=== PATIENT | male | born 1990 | race Caucasian/White ===

== ENCOUNTER 2016-08-24 10:04 | Day surgery (SDC) | payer BC ==
[~2016-08-24] VITALS: Ht 190.5 cm; Wt 117.9 kg
[~2016-08-24 10:04] MED LIST: AMOX500C PO; CODE30TA3 PO
[2016-08-24] MEDS ORDERED: ONDANSETRON 4MG/2ML VIAL (J2405) As Ordered ONE ×2 (11:37→14:29)
[2016-08-24 11:41] LABS: BASO % 0.1 % (0.0-1.0); EOS % 0.4 % (0.0-3.0); LARGE UNSTAINED CELL # 0.1 K/mm3 (0.0-0.4); LARGE UNSTAINED CELL % 0.3 % (0.0-4.0); LYMPH # 0.8 K/mm3 (1.5-6.5); LYMPH % 5.4 % (24.0-44.0); MEAN CORPUSCULAR HEMOGLOBIN 31.8 pg (27.0-33.0); MEAN CORPUSCULAR HGB CONC 34.4 g/dl (32.0-36.5); MEAN CORPUSCULAR VOLUME 92.6 fl (80.0-96.0); MONO # 0.4 K/mm3 (0.0-0.8); MONO % 3.2 % (0.0-5.0); NEUTROPHILS # 12.2 K/mm3 (1.8-7.7); NEUTROPHILS % 90.6 % (36.0-66.0); PLATELET COUNT, AUTOMATED 262 k/mm3 (150-450); RED CELL DISTRIBUTION WIDTH 12.2 % (11.5-14.5); WHITE BLOOD COUNT 13.4 K/mm3 (4.0-10.0)
[2016-08-24 11:49] LABS: ALBUMIN 4.4 GM/DL (3.2-5.2); ALBUMIN/GLOBULIN RATIO 1.05 (1.00-1.93); ALKALINE PHOSPHATASE 84 U/L (45-117); ALT/SGPT 41 U/L (12-78); ANION GAP 11 MEQ/L (8-16); AST/SGOT 18 U/L (15-37); BILIRUBIN,DIRECT 0.1 MG/DL (0.0-0.2); BILIRUBIN,TOTAL 0.6 MG/DL (0.2-1.0); BLOOD UREA NITROGEN 14 MG/DL (7-18); CALCIUM LEVEL 9.4 MG/DL (8.5-10.1); CARBON DIOXIDE LEVEL 25 MEQ/L (21-32); CHLORIDE LEVEL 104 MEQ/L (98-107); CREATININE FOR GFR 0.99 MG/DL (0.70-1.30); GLOMERULAR FILTRATION RATE > 60.0 (>60); GLUCOSE, FASTING 118 MG/DL (70-105); POTASSIUM SERUM 3.7 MEQ/L (3.5-5.1); SODIUM LEVEL 140 MEQ/L (136-145); TOTAL PROTEIN 8.6 GM/DL (6.4-8.2)
[2016-08-24] MEDS ORDERED: MORPHINE 4 MG/ML 1ML SYRINGE As Ordered ONE ×2 (11:49→12:45)
[2016-08-24] MEDS ORDERED: ISOVUE-370 76% 100ML VIAL (Q9967) As Ordered ONE (11:54)
--- NOTE | 2016-08-24 12:46 | REP ---
Clinical: Acute abdominal pain. Technique: Axial contrast enhanced images from the lung bases to the pubic symphysis using 100 ml Isovue 370 intravenous contrast material with coronal and sagittal re-formations. Findings: The appendix is fluid-filled and distended to approximately 17 mm with appendicolith and trace periappendiceal stranding suggesting the possibility of acute appendicitis (images 116 - 138). Remainder of the enteric system is unremarkable and without obstruction or further acute inflammatory process. Liver, spleen, pancreas, gallbladder, bilateral adrenal glands and kidneys are normal. Pelvis demonstrates normal bladder and age appropriate prostate/seminal vesicles. No pelvic fluid. No intraperitoneal or retroperitoneal adenopathy. No ascites. No free air. Abdominal aorta and vasculature normal. Surrounding musculoskeletal structures without focal osseous abnormality. Lung bases clear. Impression: Findings suggest acute appendicitis and clinical correlation is recommended. No associated bowel obstruction, free air to suggest perforation, or drainable collection/abscess. Signed by Prabhjot No MD 08/24/2016 12:38 P
[2016-08-24] MEDS ORDERED: ZOSYN 3.375 GM VIAL (J2543) As Ordered ONE (13:17)
[2016-08-24] MEDS ORDERED: LIDOCAINE 1% SDV INJ 30 ML VIAL As Ordered ONE (13:26)
[2016-08-24] MEDS ORDERED: BUPIVACAINE HCL 0.25% 30 ML VIAL As Ordered ONE (13:26)
[2016-08-24] MEDS ORDERED: BUPIVACAINE HCL 0.25% 30 ML VIAL XX ONE (13:37)
[2016-08-24] MEDS ORDERED: LIDOCAINE 1% SDV INJ 30 ML VIAL XX ONE (13:37)
--- NOTE | 2016-08-24 13:40 | EDDOCDS ---
Physician Documentation [facility] Name: Cory Jovel Age: 25 yrs Sex: Male : 1990 Arrival Date: 08/24/2016 Time: 10:04 Bed I7 / 29 Private MD: Piedad Hartmann Disposition: 08/24/16 13:17 Hospitalization ordered by Juan Alberto Estrada for Inpatient Admission. Preliminary diagnosis is Acute appendicitis. - Bed requested for Admit. - Status is Inpatient Admission. ja5 - Condition is Stable. - Problem is new. - Symptoms have improved. Historical: - Allergies: no known allergies; - Home Meds: 1. none - PMHx: none; - PSHx: septoplasty; - Social history: Smoking status: Patient/guardian denies using No barriers to communication noted, The patient speaks fluent Luxembourger. - : The pt / caregiver states he / she is not on anticoagulants. Home medication list is obtained from family members. - Exposure Risk Screening:: None identified. Vital Signs: 08/24 10:06 BP 154 / 74; Pulse 89; Resp 18; Temp 97.1(O); Pulse Ox 99% on R/A; Weight 117.93 kg / ct3 259.99 lbs (R); Height 6 ft. 3 in. (190.50 cm) (R); Pain 7/10; 12:39 Pain 6/10; ja5 12:41 BP 163 / 74; Pulse 70; Resp 20; Temp 98.2; Pulse Ox 100% ; Pain 6/10; jam1 12:44 Pain 6/10; dsf 13:29 BP 173 / 81; Pulse 70; Resp 20; Temp 96.4(T); Pulse Ox 99% on R/A; Pain 8/10; dsf 10:06 Body Mass Index 32.50 (117.93 kg, 190.50 cm) ct3 MDM: 11:30 Undress patient appropriately for examination ordered. cc10 11:30 IV Saline Lock ordered. cc10 11:30 Ondansetron 4 mg IVP once ordered. cc10 11:30 NS 0.9% 1000 ml IV at bolus once ordered. cc10 11:31 Basic Metabolic Profile Ordered. EDMS 11:31 CBC with Diff Ordered. EDMS 11:31 Lipase Ordered. EDMS 11:31 Liver Profile Ordered. EDMS 11:31 NOTHING BY MOUTH+DIET ordered. EDMS 11:47 morphine 4 mg IVP once ordered. cc10 11:47 CT ABD & PELVIS: IV Contrast Only Ordered. EDMS 12:16 Basic Metabolic Profile Reviewed. cc10 12:16 CBC with Diff Reviewed. cc10 12:16 Liver Profile Reviewed. cc10 12:16 Lipase Reviewed. cc10 12:19 Financial registration complete. lg 12:43 morphine 4 mg IVP once ordered. cc10 13:16 Piperacillin-Tazobactam 3.375 grams IVPB once over 30 mins; dilute in 50mL of NS or D5W cc10 ordered. 13:19 BED REQUEST+ADM ordered. EDMS 13:33 Admission Orders was scanned into [employer] and attached to record. 4 13:37 [facility] Payment Agreement was scanned into [employer] and attached to record. lg Administered Medications: 11:44 Drug: NS 0.9% 1000 ml [sodium chloride 0.9 % intravenous solution] Route: IV; Rate: ja5 bolus; Site: left antecubital; 11:45 Drug: Ondansetron 4 mg [ondansetron HCl 2 mg/mL intravenous solution (2 mL)] Route: ja5 IVP; Site: left antecubital; 11:54 Drug: morphine 4 mg [morphine 4 mg/mL intravenous cartridge (1 mL)] Route: IVP; Site: ja5 left antecubital; 12:39 Follow up: Pain 6/10 Adult ja5 12:44 Follow up: Pain 6/10 Adult; see charted VS dsf 12:47 Drug: morphine 4 mg [morphine 4 mg/mL intravenous cartridge (1 mL)] Route: IVP; Site: dsf right antecubital; 13:28 Drug: Piperacillin-Tazobactam 3.375 grams [piperacillin-tazobactam 3.375 gram ja5 intravenous solution] Route: IVPB; Infused Over: 30 mins; Site: left antecubital; Signatures: Dispatcher [employer] EDMS Kalani Kate, RN Ruddy Shepard, Reg Reg lg Ginna Méndez RN RN jc4 Celena Szymanski RN RN dsf Carlos Camacho, PA-C PA-C cc10 Soni Nieves RN RN ja5 The chart was reviewed and I authenticate all verbal orders and agree with the evaluation and treatment provided.Attachments: 13:33 Admission Orders jc4 13:37 [facility] Payment Agreement lg MTDD
--- NOTE | 2016-08-24 13:40 | EDDOCDS ---
Nurse's Notes [facility] Name: Cory Jovel Age: 25 yrs Sex: Male : 1990 Arrival Date: 08/24/2016 Time: 10:04 Bed I7 / 29 Private MD: Piedad Hartmann Diagnosis: Acute appendicitis Presentation: 08/24 10:15 Presenting complaint: Patient states: Pt presents with onset of bloody vomiting last dls night has had abdominal pain x 2 days denies any diarrhea. Risk factors: the patient reports not having a history of previous torsion. Adult Sepsis Screening: The patient does not have new or worsening altered mentation. Patient's respiratory rate is less than 22. Systolic blood pressure is greater than 100. Patient has a qSOFA score of 0- Negative Sepsis Screen. Suicide/Homicide risk assessment- the patient denies having any suicidal and/or homicidal ideations and does not present with any other emotional, behavioral or mental health complaints. Status: Patient is not a sales and service officer or dependent. Transition of care: patient was not received from another setting of care. 10:15 Acuity: TASIA Level 3 dls 10:15 Method Of Arrival: Walkin/Carried/Asstd dls 10:18 Presenting complaint: Patient states: Vomited x 7 today. dls Triage Assessment: 10:17 General: Appears distressed, well developed, well nourished, well groomed, Behavior is dls anxious. Pain: Pain Level that is acceptable is 8 out of 10 on a pain scale. HIV screening NA for this visit Offered previously. GI: Reports lower abdominal pain, upper abd pain, nausea, vomiting. Historical: - Allergies: no known allergies; - Home Meds: 1. none - PMHx: none; - PSHx: septoplasty; - Social history: Smoking status: Patient/guardian denies using No barriers to communication noted, The patient speaks fluent Cymro. - : The pt / caregiver states he / she is not on anticoagulants. Home medication list is obtained from family members. - Exposure Risk Screening:: None identified. Screenin:45 Screening information is obtained from the patient. Fall risk: No risks identified. ja5 Assistance ADL's: requires no assistance with activities of daily living. Abuse/DV Screen: The patient / caregiver reports he/she is: not in a situation that causes fear, pain or injury. Nutritional screening: On no prescribed diet. Advance Directives: Currently, there is a health care proxy, Mariola Rush, mother. There is no active DNR order. There is no living will. There is no Power of Sports Physical Therapist. home support is adequate. Assessment: 10:44 Adult Sepsis Screening: The patient does not have new or worsening altered mentation. dsf Patient's respiratory rate is less than 22. Systolic blood pressure is greater than 100. Patient has a qSOFA score of 0- Negative Sepsis Screen. General: Appears uncomfortable, Behavior is appropriate for age. Pain: Location: abdomen Pain currently is 8 out of 10 on a pain scale. Pain began 2-3 days ago. Neurological: Level of Consciousness is awake, alert, Oriented to person, place, time. Cardiovascular: Capillary refill < 3 seconds Heart tones S1 S2 present. Respiratory: Airway is patent Respiratory effort is even, unlabored, Respiratory pattern is regular, symmetrical, Breath sounds are clear bilaterally. GI: Abdomen is non- distended Bowel sounds present X 4 quads. Abd is soft X 4 quads Abd is tender to palpation in epigastric area, left upper quadrant and right lower quadrant Reports vomiting blood. Derm: Skin is pink, warm & dry. 11:44 General: Appears uncomfortable, Behavior is appropriate for age. Neurological: Level of dsf Consciousness is awake, alert. Cardiovascular: No deficits noted. Respiratory: No deficits noted. Derm: Skin is pink, warm & dry. 12:44 General: Appears in no apparent distress, uncomfortable, Behavior is appropriate for dsf age, cooperative. Neurological: Level of Consciousness is awake, alert. Cardiovascular: Capillary refill < 3 seconds. Respiratory: Airway is patent Respiratory effort is even, unlabored, Respiratory pattern is regular, symmetrical. Derm: Skin is pink, warm & dry. 13:21 General: Dr. Shrestha in examining patient. dsf 13:32 General: Patient awake and alert, still having pain, respirations are even and ja5 unlabored, color is pink. Patient laying in stretcher, visitor at bedside. Antibiotics infusing to LAC, patient OR packet has been completed, he is awaiting to leave for surgery at this time. . Vital Signs: 10:06 BP 154 / 74; Pulse 89; Resp 18; Temp 97.1(O); Pulse Ox 99% on R/A; Weight 117.93 kg ct3 (R); Height 6 ft. 3 in. (190.50 cm) (R); Pain 7/10; 12:39 Pain 6/10; ja5 12:41 BP 163 / 74; Pulse 70; Resp 20; Temp 98.2; Pulse Ox 100% ; Pain 6/10; jam1 12:44 Pain 6/10; dsf 13:29 BP 173 / 81; Pulse 70; Resp 20; Temp 96.4(T); Pulse Ox 99% on R/A; Pain 8/10; dsf 10:06 Body Mass Index 32.50 (117.93 kg, 190.50 cm) ct3 Vitals: 10:06 Log In Time: August 24, 2016 at 10:01. ct3 ED Course: 10:05 Patient visited by Saira Enriquez PCA. ct3 10:05 Patient moved to Waiting ct3 10:06 Piedad Hartmann is Private Physician. ct3 10:07 Patient moved to Pre RCE ct3 10:17 Triage Initiated dls 10:22 Soni Nieves,RN is Primary Nurse. dls 10:22 Ginna Méndez, DUSTIN is Primary Nurse. dls 10:22 Patient moved to I dls 10:45 Patient visited by Celena Szymanski RN. dsf 10:45 Inserted saline lock: 20 gauge in left antecubital area The patient tolerated the dsf procedure well. 11:32 Basic Metabolic Profile Sent. dsf 11:32 CBC with Diff Sent. dsf 11:32 Lipase Sent. dsf 11:32 Liver Profile Sent. dsf 11:44 Carlos Camacho PA-C is PHCP. cc10 11:44 Mj Bell MD is Attending Physician. cc10 11:44 Patient visited by Carlos Camacho PA-C. cc10 11:44 Patient visited by Carlos Camacho PA-C. cc10 12:40 Patient visited by Soni Nieves RN. ja5 13:16 Juan Alberto Estrada MD is Hospitalizing Provider. cc10 13:17 CT ABD & PELVIS: IV Contrast Only Returned. EDMS 13:22 Patient visited by Celena Szymanski RN. dsf 13:33 Admission Orders was scanned into [employer] and attached to record. jc4 13:37 [facility] Payment Agreement was scanned into [employer] and attached to record. lg Administered Medications: 11:44 Drug: NS 0.9% 1000 ml [sodium chloride 0.9 % intravenous solution] Route: IV; Rate: ja5 bolus; Site: left antecubital; 11:45 Drug: Ondansetron 4 mg [ondansetron HCl 2 mg/mL intravenous solution (2 mL)] Route: ja5 IVP; Site: left antecubital; 11:54 Drug: morphine 4 mg [morphine 4 mg/mL intravenous cartridge (1 mL)] Route: IVP; Site: ja5 left antecubital; 12:39 Follow up: Pain 6/10 Adult ja5 12:44 Follow up: Pain 6/10 Adult; see charted VS dsf 12:47 Drug: morphine 4 mg [morphine 4 mg/mL intravenous cartridge (1 mL)] Route: IVP; Site: dsf right antecubital; 13:28 Drug: Piperacillin-Tazobactam 3.375 grams [piperacillin-tazobactam 3.375 gram ja5 intravenous solution] Route: IVPB; Infused Over: 30 mins; Site: left antecubital; Intake: Order Results: Lab Order: Basic Metabolic Profile; SPEC'M 08/24/16 10:42 Test: GLUCOSE, FASTING; Value: 118; Range: 70-105; Abnormal: Above high normal; Units: MG/DL; Status: F Test: BLOOD UREA NITROGEN; Value: 14; Range: 7-18; Units: MG/DL; Status: F Test: CREATININE FOR GFR; Value: 0.99; Range: 0.70-1.30; Units: MG/DL; Status: F Test: GLOMERULAR FILTRATION RATE; Value: > 60.0; Range: >60; Status: F Test: SODIUM LEVEL; Value: 140; Range: 136-145; Units: MEQ/L; Status: F Test: POTASSIUM SERUM; Value: 3.7; Range: 3.5-5.1; Units: MEQ/L; Status: F Test: CHLORIDE LEVEL; Value: 104; Range: 98-107; Units: MEQ/L; Status: F Test: CARBON DIOXIDE LEVEL; Value: 25; Range: 21-32; Units: MEQ/L; Status: F Test: ANION GAP; Value: 11; Range: 8-16; Units: MEQ/L; Status: F Test: CALCIUM LEVEL; Value: 9.4; Range: 8.5-10.1; Units: MG/DL; Status: F Test Note: ; Units are mL/min/1.73 m2 Chronic Kidney Disease Staging per NKF: Stage I & II GFR >=60 Normal to Mildly Decreased Stage III GFR 30-59 Moderately Decreased Stage IV GFR 15-29 Severely Decreased Stage V GFR <15 Very Little GFR Left ESRD GFR <15 on BI DATA ARCHITECT Lab Order: CBC with Diff; SPEC'M 08/24/16 10:42 Test: WHITE BLOOD COUNT; Value: 13.4; Range: 4.0-10.0; Abnormal: Above high normal; Units: K/mm3; Status: F Test: RED BLOOD COUNT; Value: 5.24; Range: 4.30-6.10; Units: M/mm3; Status: F Test: HEMOGLOBIN; Value: 16.7; Range: 14.0-18.0; Units: g/dl; Status: F Test: HEMATOCRIT; Value: 48.5; Range: 42.0-52.0; Units: %; Status: F Test: MEAN CORPUSCULAR VOLUME; Value: 92.6; Range: 80.0-96.0; Units: fl; Status: F Test: MEAN CORPUSCULAR HEMOGLOBIN; Value: 31.8; Range: 27.0-33.0; Units: pg; Status: F Test: MEAN CORPUSCULAR HGB CONC; Value: 34.4; Range: 32.0-36.5; Units: g/dl; Status: F Test: RED CELL DISTRIBUTION WIDTH; Value: 12.2; Range: 11.5-14.5; Units: %; Status: F Test: PLATELET COUNT, AUTOMATED; Value: 262; Range: 150-450; Units: k/mm3; Status: F Test: NEUTROPHILS %; Value: 90.6; Range: 36.0-66.0; Abnormal: Above high normal; Units: %; Status: F Test: LYMPH %; Value: 5.4; Range: 24.0-44.0; Abnormal: Below low normal; Units: %; Status: F Test: MONO %; Value: 3.2; Range: 0.0-5.0; Units: %; Status: F Test: EOS %; Value: 0.4; Range: 0.0-3.0; Units: %; Status: F Test: BASO %; Value: 0.1; Range: 0.0-1.0; Units: %; Status: F Test: LARGE UNSTAINED CELL %; Value: 0.3; Range: 0.0-4.0; Units: %; Status: F Test: NEUTROPHILS #; Value: 12.2; Range: 1.8-7.7; Abnormal: Above high normal; Units: K/mm3; Status: F Test: LYMPH #; Value: 0.8; Range: 1.5-6.5; Abnormal: Below low normal; Units: K/mm3; Status: F Test: MONO #; Value: 0.4; Range: 0.0-0.8; Units: K/mm3; Status: F Test: EOS #; Value: 0.0; Range: 0.0-0.50; Units: K/mm3; Status: F Test: BASO #; Value: 0.0; Range: 0.0-0.2; Units: K/mm3; Status: F Test: LARGE UNSTAINED CELL #; Value: 0.1; Range: 0.0-0.4; Units: K/mm3; Status: F Lab Order: Lipase; [facility] 08/24/16 10:42 Test: LIPASE; Value: 81; Range: 73-393; Units: U/L; Status: F Lab Order: Liver Profile; [facility] 08/24/16 10:42 Test: AST/SGOT; Value: 18; Range: 15-37; Units: U/L; Status: F Test: ALT/SGPT; Value: 41; Range: 12-78; Units: U/L; Status: F Test: ALKALINE PHOSPHATASE; Value: 84; Range: 45-117; Units: U/L; Status: F Test: BILIRUBIN,TOTAL; Value: 0.6; Range: 0.2-1.0; Units: MG/DL; Status: F Test: BILIRUBIN,DIRECT; Value: 0.1; Range: 0.0-0.2; Units: MG/DL; Status: F Test: TOTAL PROTEIN; Value: 8.6; Range: 6.4-8.2; Abnormal: Above high normal; Units: GM/DL; Status: F Test: ALBUMIN; Value: 4.4; Range: 3.2-5.2; Units: GM/DL; Status: F Test: ALBUMIN/GLOBULIN RATIO; Value: 1.05; Range: 1.00-1.93; Status: F Radiology Order: CT ABD & PELVIS: IV Contrast Only Test: CT ABD & PELVIS: IV Contrast Only REASON FOR EXAMINATION: Abdomen Pain; Clinical: Acute abdominal pain.; ; Technique: Axial contrast enhanced images from the lung bases to the pubic; symphysis using 100 ml Isovue 370 intravenous contrast material with coronal and; sagittal re-formations.; ; Findings:; ; The appendix is fluid-filled and distended to approximately 17 mm with; appendicolith and trace periappendiceal stranding suggesting the possibility of; acute appendicitis (images 116 - 138). Remainder of the enteric system is; unremarkable and without obstruction or further acute inflammatory process.; ; Liver, spleen, pancreas, gallbladder, bilateral adrenal glands and kidneys are; normal. Pelvis demonstrates normal bladder and age appropriate prostate/seminal; vesicles. No pelvic fluid. No intraperitoneal or retroperitoneal adenopathy.; No ascites. No free air. Abdominal aorta and vasculature normal. Surrounding; musculoskeletal structures without focal osseous abnormality. Lung bases clear.; ; Impression:; Findings suggest acute appendicitis and clinical correlation is recommended. No; associated bowel obstruction, free air to suggest perforation, or drainable; collection/abscess.; ; ; Signed by; Prabhjot No MD 08/24/2016 12:38 P; Outcome: 13:17 Decision to Hospitalize by Provider. cc10 13:39 Patient left the ED. ja5 Signatures: Dispatcher [employer] EDMS Kalani Kate, RN RN dls Crys Plasencia, SOUND MIXER SOUND MIXER jam1 Ruddy Oshea, Ginna Plaza lg RN RN [email or web address] Saira Enriquez, SOUND MIXER SOUND MIXER ct3 Celena Szymanski,RN RN Carlos Persaud, PA-C PA-C cc10 Soni Nieves RN RN ja5 MTDD
[2016-08-24] MEDS ORDERED: MIDAZOLAM INJ 2 MG/2 ML VIAL (J2250) As Ordered ONE (14:05)
[2016-08-24] MEDS ORDERED: fentaNYL 250 MCG/5 ML INJECTION (J3010) As Ordered ONE (14:05)
[2016-08-24] MEDS ORDERED: PROPOFOL 200 MG/20 ML VIAL As Ordered ONE (14:05)
[2016-08-24] MEDS ORDERED: LIDOCAINE 2% INJ 100 MG/5 ML SDV (FOR ANES.) As Ordered ONE (14:05)
[2016-08-24] MEDS ORDERED: ROCURONIUM BROMIDE 50 MG/5 ML VIAL As Ordered ONE (14:05)
[2016-08-24] MEDS ORDERED: MORPHINE 10 MG/ML 1ML VIAL As Ordered ONE (14:27)
[2016-08-24] MEDS ORDERED: GLYCOPYRROLATE INJ 0.2 MG/ML 2 ML VIAL As Ordered ONE (14:29)
[2016-08-24] MEDS ORDERED: NEOSTIGMINE 1MG/ML 5 ML SYRINGE (J2710) As Ordered ONE (14:29)
[2016-08-24] MEDS ORDERED: KETOROLAC 60 MG/2 ML VIAL (J1885) As Ordered ONE (14:29)
[2016-08-24] MEDS: LR 1,000 ML IV SCH ×2 (14:50→20:23)
[2016-08-24] MEDS ORDERED: NORCO, ANEXSIA 5/325MG TABLET (HYDROcodone/ACETAMINOPHEN) PO PRN (15:00)
[2016-08-24] MEDS ORDERED: ONDANSETRON 4MG/2ML VIAL (J2405) IV PRN ×2 (15:00→15:30)
[2016-08-24] MEDS ORDERED: MORPHINE 4 MG/ML 1ML SYRINGE IV PRN (15:00)
[2016-08-24] MEDS ORDERED: ACETAMINOPHEN TAB 650MG DOSE (2X325MG) PO PRN (15:00)
[2016-08-24] MEDS ORDERED: KETOROLAC 30 MG/ML VIAL (J1885) IV PRN (15:00)
[2016-08-24] MEDS ORDERED: LR 1,000 ML IV SCH (15:30)
[2016-08-24] MEDS ORDERED: MORPHINE 2 MG/ML 1ML SYRINGE IV PRN (15:30)
[2016-08-24] MEDS ORDERED: fentaNYL 100 MCG/2 ML INJECTION (J3010) IV PRN (15:30)
[2016-08-24 16:05] VITALS: BP 167/78
[2016-08-24 16:35] VITALS: BP_SYST 143; BP_DIAS 44; BP_DIAS 74
[2016-08-24 17:35] VITALS: BP 148/77
--- NOTE | 2016-08-24 18:13 | RO ---
DATE OF PROCEDURE: 08/24/2016 PREOPERATIVE DIAGNOSIS: Acute appendicitis with generalized peritonitis. POSTOPERATIVE DIAGNOSIS: 1. Acute appendicitis. 2. Ischemic appendix. PROCEDURE PERFORMED: Laparoscopic appendectomy. SURGEON: Dr. Juan Alberto Estrada FILL PLANT OPERATOR: ANESTHESIA: General anesthesia. ESTIMATED BLOOD LOSS: Less than 10 mL. COMPLICATIONS: None. REMARKS: Appendix distended up to more than 2 cm, dilated and ischemic appearing. No perforation noted. Appendicolith noted close to the base. DESCRIPTION OF PROCEDURE: Mr. Jovel is a healthy, young, 25-year-old gentleman, moderately obese, who presented with an overnight history of increasing abdominal pain, generalized in nature, nausea and vomiting. He was found to have a white cell count of 13,000, evidence for appendicitis. He was tender all throughout his abdomen with generalized guarding. He received 3.375 grams IV of Zosyn in the emergency room prior to coming to the operating room. In the operating room, he was laid is a supine on the table. Compression boots placed on his lower extremities for deep vein thrombosis (DVT) prophylaxis. General endotracheal anesthesia started without any complications. His abdomen was prepped and draped in the usual sterile fashion. We performed a surgical time-out, then we began our surgery. About 2 cm above the umbilicus, the area was infiltrated with local anesthesia, a short transverse incision roughly about 2-1/2 cm was created, deepened to the anterior fascia. A Veress needle inserted in a controlled fashion, placement confirmed with saline drop technique. CO2 insufflation started a pressure of 15 mmHg. Using the same incision, a 12 mm Visiport was placed under direct vision of the laparoscope. The area under the insertion site was inspected for injury and none was found. He was placed in a Trendelenburg position, right side tilted roughly about 30 degrees to retract structures away from the right lower quadrant area. A 5 mm suprapubic port and 5 mm left lower quadrant port was then placed under direct vision. Diagnostic laparoscopy, the appendix easily visualized over the right lower quadrant area, ischemic in appearance, distended all throughout its course. The mesoappendix is slightly attenuated. There was a minimal amount of purulent material close to the base of the appendix at the right gutter, none else were found. The appendix was placed into view. Due to the attenuation of the mesoappendix, not much dissection was needed to expose the base of the appendix. I chose a 35 mm linear stapler with a blue load. The appendix was divided at the base, the base itself appears ischemic, intact. The edge of the mesoappendix was divided with Bovie cautery. The whole appendix and mesoappendix was taken with one firing of the stapler. This was placed in an EndoCatch bag, retrieved through the umbilical port site which we had enlarged to accommodate the appendix. On reinsufflation, we inspected our surgical site. No bleeding was found. The stump was noted to be intact. No further fluid collections were found. The abdomen was deflated, all ports removed. The umbilical fascial defect repaired with #0 Vicryl in a mattress fashion. All skin incisions closed Cut off, then brief background [employer] phone message recording, then dictation ended.
[2016-08-24 18:35] VITALS: BP 145/67
[2016-08-24] MEDS: PIPERACILLIN/TAZOBACTAM SOD 3.375 GM in D5W MINI-BAG PLUS 50 ML IV SCH (18:52)
[2016-08-24 19:35] VITALS: BP_SYST 140; BP_DIAS 57; BP_DIAS 80
[2016-08-24] MEDS: SENOKOT S TAB PO SCH (20:23)
[2016-08-24 21:00] VITALS: BP 122/56
[2016-08-25] VITALS: BP 136/60
[2016-08-25] MEDS: PIPERACILLIN/TAZOBACTAM SOD 3.375 GM in D5W MINI-BAG PLUS 50 ML IV SCH ×2 (01:48→06:51)
[2016-08-25 04:00] VITALS: BP 149/90
[2016-08-25] MEDS: NORCO, ANEXSIA 5/325MG TABLET (HYDROcodone/ACETAMINOPHEN) PO PRN ×2 (04:02→11:58)
[2016-08-25 07:34] LABS: BASO % 0.3 % (0.0-1.0); EOS # 0.1 K/mm3 (0.0-0.50); EOS % 1.4 % (0.0-3.0); LARGE UNSTAINED CELL # 0.1 K/mm3 (0.0-0.4); LYMPH # 1.4 K/mm3 (1.5-6.5); LYMPH % 16.4 % (24.0-44.0); MEAN CORPUSCULAR HEMOGLOBIN 32.4 pg (27.0-33.0); MEAN CORPUSCULAR HGB CONC 34.5 g/dl (32.0-36.5); MEAN CORPUSCULAR VOLUME 93.9 fl (80.0-96.0); MONO # 0.4 K/mm3 (0.0-0.8); NEUTROPHILS # 6.1 K/mm3 (1.8-7.7); PLATELET COUNT, AUTOMATED 223 k/mm3 (150-450); RED CELL DISTRIBUTION WIDTH 12.4 % (11.5-14.5)
[2016-08-25 07:41] LABS: ANION GAP 8 MEQ/L (8-16); BLOOD UREA NITROGEN 14 MG/DL (7-18); CALCIUM LEVEL 8.1 MG/DL (8.5-10.1); CARBON DIOXIDE LEVEL 28 MEQ/L (21-32); CHLORIDE LEVEL 105 MEQ/L (98-107); CREATININE FOR GFR 1.16 MG/DL (0.70-1.30); GLOMERULAR FILTRATION RATE > 60.0 (>60); GLUCOSE, FASTING 101 MG/DL (70-105); POTASSIUM SERUM 3.9 MEQ/L (3.5-5.1); SODIUM LEVEL 141 MEQ/L (136-145)
[2016-08-25 08:00] VITALS: BP 149/63
[2016-08-25] MEDS ORDERED: NORCOTAB PO (09:01)
[2016-08-25] MEDS: SENOKOT S TAB PO SCH (09:23)
--- NOTE | 2016-08-26 14:40 | EDDOCDS ---
Physician Documentation [facility] Name: Cory Jovel Age: 25 yrs Sex: Male : 1990 Arrival Date: 08/24/2016 Time: 10:04 Bed I7 / 29 Private MD: Piedad Hartmann Disposition: 08/24/16 13:17 Hospitalization ordered by Juan Alberto Estrada for Inpatient Admission. Preliminary diagnosis is Acute appendicitis. - Bed requested for Admit. - Status is Inpatient Admission. ja5 - Condition is Stable. - Problem is new. - Symptoms have improved. Historical: - Allergies: no known allergies; - Home Meds: 1. none - PMHx: none; - PSHx: septoplasty; - Social history: Smoking status: Patient/guardian denies using No barriers to communication noted, The patient speaks fluent Tuvaluan. - : The pt / caregiver states he / she is not on anticoagulants. Home medication list is obtained from family members. - Exposure Risk Screening:: None identified. Vital Signs: 08/24 10:06 BP 154 / 74; Pulse 89; Resp 18; Temp 97.1(O); Pulse Ox 99% on R/A; Weight 117.93 kg / ct3 259.99 lbs (R); Height 6 ft. 3 in. (190.50 cm) (R); Pain 7/10; 12:39 Pain 6/10; ja5 12:41 BP 163 / 74; Pulse 70; Resp 20; Temp 98.2; Pulse Ox 100% ; Pain 6/10; jam1 12:44 Pain 6/10; dsf 13:29 BP 173 / 81; Pulse 70; Resp 20; Temp 96.4(T); Pulse Ox 99% on R/A; Pain 8/10; dsf 10:06 Body Mass Index 32.50 (117.93 kg, 190.50 cm) ct3 MDM: 11:30 Undress patient appropriately for examination ordered. cc10 11:30 IV Saline Lock ordered. cc10 11:30 Ondansetron 4 mg IVP once ordered. cc10 11:30 NS 0.9% 1000 ml IV at bolus once ordered. cc10 11:31 Basic Metabolic Profile Ordered. EDMS 11:31 CBC with Diff Ordered. EDMS 11:31 Lipase Ordered. EDMS 11:31 Liver Profile Ordered. EDMS 11:31 NOTHING BY MOUTH+DIET ordered. EDMS 11:47 morphine 4 mg IVP once ordered. cc10 11:47 CT ABD & PELVIS: IV Contrast Only Ordered. EDMS 12:16 Basic Metabolic Profile Reviewed. cc10 12:16 CBC with Diff Reviewed. cc10 12:16 Liver Profile Reviewed. cc10 12:16 Lipase Reviewed. cc10 12:19 Financial registration complete. lg 12:43 morphine 4 mg IVP once ordered. cc10 13:16 Piperacillin-Tazobactam 3.375 grams IVPB once over 30 mins; dilute in 50mL of NS or D5W cc10 ordered. 13:19 BED REQUEST+ADM ordered. EDMS 13:33 Admission Orders was scanned into [employer] and attached to record. [facility] 13:37 [facility] Payment Agreement was scanned into [employer] and attached to record. lg 15:34 T-Sheet-- Draft Copy was scanned into [employer] and attached to record. gb Administered Medications: 11:44 Drug: NS 0.9% 1000 ml [sodium chloride 0.9 % intravenous solution] Route: IV; Rate: ja5 bolus; Site: left antecubital; 11:45 Drug: Ondansetron 4 mg [ondansetron HCl 2 mg/mL intravenous solution (2 mL)] Route: ja5 IVP; Site: left antecubital; 11:54 Drug: morphine 4 mg [morphine 4 mg/mL intravenous cartridge (1 mL)] Route: IVP; Site: ja5 left antecubital; 12:39 Follow up: Pain 6/10 Adult ja5 12:44 Follow up: Pain 6/10 Adult; see charted VS dsf 12:47 Drug: morphine 4 mg [morphine 4 mg/mL intravenous cartridge (1 mL)] Route: IVP; Site: dsf right antecubital; 13:28 Drug: Piperacillin-Tazobactam 3.375 grams [piperacillin-tazobactam 3.375 gram ja5 intravenous solution] Route: IVPB; Infused Over: 30 mins; Site: left antecubital; Signatures: Dispatcher [employer] EDMS Kalani Kate RN RN dls Cindi Peraza, Reg Reg gb Ruddy Oshea, Reg Reg lg Ginna Méndez RN RN jc4 Celena Szymanski RN RN Carlos Persaud PA-C PAEleniC cc10 Soni NievesRN RN ja5 The chart was reviewed and I authenticate all verbal orders and agree with the evaluation and treatment provided.Attachments: 13:33 Admission Orders jc4 13:37 [facility] Payment Agreement lg 15:34 T-Sheet-- Draft Copy gb Chart Complete MTDD
--- NOTE | 2016-08-26 14:40 | EDDOCDS ---
Nurse's Notes [facility] Name: Cory Jovel Age: 25 yrs Sex: Male : 1990 Arrival Date: 08/24/2016 Time: 10:04 Bed I7 / 29 Private MD: Piedad Hartmann Diagnosis: Acute appendicitis Presentation: 08/24 10:15 Presenting complaint: Patient states: Pt presents with onset of bloody vomiting last dls night has had abdominal pain x 2 days denies any diarrhea. Risk factors: the patient reports not having a history of previous torsion. Adult Sepsis Screening: The patient does not have new or worsening altered mentation. Patient's respiratory rate is less than 22. Systolic blood pressure is greater than 100. Patient has a qSOFA score of 0- Negative Sepsis Screen. Suicide/Homicide risk assessment- the patient denies having any suicidal and/or homicidal ideations and does not present with any other emotional, behavioral or mental health complaints. Status: Patient is not a customer service attendant or dependent. Transition of care: patient was not received from another setting of care. 10:15 Acuity: TASIA Level 3 dls 10:15 Method Of Arrival: Walkin/Carried/Asstd dls 10:18 Presenting complaint: Patient states: Vomited x 7 today. dls Triage Assessment: 10:17 General: Appears distressed, well developed, well nourished, well groomed, Behavior is dls anxious. Pain: Pain Level that is acceptable is 8 out of 10 on a pain scale. HIV screening NA for this visit Offered previously. GI: Reports lower abdominal pain, upper abd pain, nausea, vomiting. Historical: - Allergies: no known allergies; - Home Meds: 1. none - PMHx: none; - PSHx: septoplasty; - Social history: Smoking status: Patient/guardian denies using No barriers to communication noted, The patient speaks fluent Guinean. - : The pt / caregiver states he / she is not on anticoagulants. Home medication list is obtained from family members. - Exposure Risk Screening:: None identified. Screenin:45 Screening information is obtained from the patient. Fall risk: No risks identified. ja5 Assistance ADL's: requires no assistance with activities of daily living. Abuse/DV Screen: The patient / caregiver reports he/she is: not in a situation that causes fear, pain or injury. Nutritional screening: On no prescribed diet. Advance Directives: Currently, there is a health care proxy, Mariola Rush, mother. There is no active DNR order. There is no living will. There is no Power of Photographic Reproduction Technician. home support is adequate. Assessment: 10:44 Adult Sepsis Screening: The patient does not have new or worsening altered mentation. dsf Patient's respiratory rate is less than 22. Systolic blood pressure is greater than 100. Patient has a qSOFA score of 0- Negative Sepsis Screen. General: Appears uncomfortable, Behavior is appropriate for age. Pain: Location: abdomen Pain currently is 8 out of 10 on a pain scale. Pain began 2-3 days ago. Neurological: Level of Consciousness is awake, alert, Oriented to person, place, time. Cardiovascular: Capillary refill < 3 seconds Heart tones S1 S2 present. Respiratory: Airway is patent Respiratory effort is even, unlabored, Respiratory pattern is regular, symmetrical, Breath sounds are clear bilaterally. GI: Abdomen is non- distended Bowel sounds present X 4 quads. Abd is soft X 4 quads Abd is tender to palpation in epigastric area, left upper quadrant and right lower quadrant Reports vomiting blood. Derm: Skin is pink, warm & dry. 11:44 General: Appears uncomfortable, Behavior is appropriate for age. Neurological: Level of dsf Consciousness is awake, alert. Cardiovascular: No deficits noted. Respiratory: No deficits noted. Derm: Skin is pink, warm & dry. 12:44 General: Appears in no apparent distress, uncomfortable, Behavior is appropriate for dsf age, cooperative. Neurological: Level of Consciousness is awake, alert. Cardiovascular: Capillary refill < 3 seconds. Respiratory: Airway is patent Respiratory effort is even, unlabored, Respiratory pattern is regular, symmetrical. Derm: Skin is pink, warm & dry. 13:21 General: Dr. Shrestha in examining patient. dsf 13:32 General: Patient awake and alert, still having pain, respirations are even and ja5 unlabored, color is pink. Patient laying in stretcher, visitor at bedside. Antibiotics infusing to LAC, patient OR packet has been completed, he is awaiting to leave for surgery at this time. . Vital Signs: 10:06 BP 154 / 74; Pulse 89; Resp 18; Temp 97.1(O); Pulse Ox 99% on R/A; Weight 117.93 kg ct3 (R); Height 6 ft. 3 in. (190.50 cm) (R); Pain 7/10; 12:39 Pain 6/10; ja5 12:41 BP 163 / 74; Pulse 70; Resp 20; Temp 98.2; Pulse Ox 100% ; Pain 6/10; jam1 12:44 Pain 6/10; dsf 13:29 BP 173 / 81; Pulse 70; Resp 20; Temp 96.4(T); Pulse Ox 99% on R/A; Pain 8/10; dsf 10:06 Body Mass Index 32.50 (117.93 kg, 190.50 cm) ct3 Vitals: 10:06 Log In Time: August 24, 2016 at 10:01. ct3 ED Course: 10:05 Patient visited by Saira Enriquez PCA. ct3 10:05 Patient moved to Waiting ct3 10:06 Piedad Hartmann is Private Physician. ct3 10:07 Patient moved to Pre RCE ct3 10:17 Triage Initiated dls 10:22 Soni Nieves,RN is Primary Nurse. dls 10:22 Ginna Méndez, DUSTIN is Primary Nurse. dls 10:22 Patient moved to I dls 10:45 Patient visited by Celena Szymanski RN. dsf 10:45 Inserted saline lock: 20 gauge in left antecubital area The patient tolerated the dsf procedure well. 11:32 Basic Metabolic Profile Sent. dsf 11:32 CBC with Diff Sent. dsf 11:32 Lipase Sent. dsf 11:32 Liver Profile Sent. dsf 11:44 Carlos Camacho PA-C is PHCP. cc10 11:44 Mj Bell MD is Attending Physician. cc10 11:44 Patient visited by Carlos Camacho PA-C. cc10 11:44 Patient visited by Carlos Camacho PA-C. cc10 12:40 Patient visited by Soni Nieves RN. ja5 13:16 Juan Alberto Estrada MD is Hospitalizing Provider. cc10 13:17 CT ABD & PELVIS: IV Contrast Only Returned. EDMS 13:22 Patient visited by Celena Szymanski RN. dsf 13:33 Admission Orders was scanned into [employer] and attached to record. jc4 13:37 [facility] Payment Agreement was scanned into [employer] and attached to record. lg 15:34 T-Sheet-- Draft Copy was scanned into [employer] and attached to record. gb Administered Medications: 11:44 Drug: NS 0.9% 1000 ml [sodium chloride 0.9 % intravenous solution] Route: IV; Rate: ja5 bolus; Site: left antecubital; 11:45 Drug: Ondansetron 4 mg [ondansetron HCl 2 mg/mL intravenous solution (2 mL)] Route: ja5 IVP; Site: left antecubital; 11:54 Drug: morphine 4 mg [morphine 4 mg/mL intravenous cartridge (1 mL)] Route: IVP; Site: ja5 left antecubital; 12:39 Follow up: Pain 6/10 Adult ja5 12:44 Follow up: Pain 6/10 Adult; see charted VS dsf 12:47 Drug: morphine 4 mg [morphine 4 mg/mL intravenous cartridge (1 mL)] Route: IVP; Site: dsf right antecubital; 13:28 Drug: Piperacillin-Tazobactam 3.375 grams [piperacillin-tazobactam 3.375 gram ja5 intravenous solution] Route: IVPB; Infused Over: 30 mins; Site: left antecubital; Intake: Order Results: Lab Order: Basic Metabolic Profile; SPEC'M 08/24/16 10:42 Test: GLUCOSE, FASTING; Value: 118; Range: 70-105; Abnormal: Above high normal; Units: MG/DL; Status: F Test: BLOOD UREA NITROGEN; Value: 14; Range: 7-18; Units: MG/DL; Status: F Test: CREATININE FOR GFR; Value: 0.99; Range: 0.70-1.30; Units: MG/DL; Status: F Test: GLOMERULAR FILTRATION RATE; Value: > 60.0; Range: >60; Status: F Test: SODIUM LEVEL; Value: 140; Range: 136-145; Units: MEQ/L; Status: F Test: POTASSIUM SERUM; Value: 3.7; Range: 3.5-5.1; Units: MEQ/L; Status: F Test: CHLORIDE LEVEL; Value: 104; Range: 98-107; Units: MEQ/L; Status: F Test: CARBON DIOXIDE LEVEL; Value: 25; Range: 21-32; Units: MEQ/L; Status: F Test: ANION GAP; Value: 11; Range: 8-16; Units: MEQ/L; Status: F Test: CALCIUM LEVEL; Value: 9.4; Range: 8.5-10.1; Units: MG/DL; Status: F Test Note: ; Units are mL/min/1.73 m2 Chronic Kidney Disease Staging per NKF: Stage I & II GFR >=60 Normal to Mildly Decreased Stage III GFR 30-59 Moderately Decreased Stage IV GFR 15-29 Severely Decreased Stage V GFR <15 Very Little GFR Left ESRD GFR <15 on CONTAINER WASHER Lab Order: CBC with Diff; SPEC'M 08/24/16 10:42 Test: WHITE BLOOD COUNT; Value: 13.4; Range: 4.0-10.0; Abnormal: Above high normal; Units: K/mm3; Status: F Test: RED BLOOD COUNT; Value: 5.24; Range: 4.30-6.10; Units: M/mm3; Status: F Test: HEMOGLOBIN; Value: 16.7; Range: 14.0-18.0; Units: g/dl; Status: F Test: HEMATOCRIT; Value: 48.5; Range: 42.0-52.0; Units: %; Status: F Test: MEAN CORPUSCULAR VOLUME; Value: 92.6; Range: 80.0-96.0; Units: fl; Status: F Test: MEAN CORPUSCULAR HEMOGLOBIN; Value: 31.8; Range: 27.0-33.0; Units: pg; Status: F Test: MEAN CORPUSCULAR HGB CONC; Value: 34.4; Range: 32.0-36.5; Units: g/dl; Status: F Test: RED CELL DISTRIBUTION WIDTH; Value: 12.2; Range: 11.5-14.5; Units: %; Status: F Test: PLATELET COUNT, AUTOMATED; Value: 262; Range: 150-450; Units: k/mm3; Status: F Test: NEUTROPHILS %; Value: 90.6; Range: 36.0-66.0; Abnormal: Above high normal; Units: %; Status: F Test: LYMPH %; Value: 5.4; Range: 24.0-44.0; Abnormal: Below low normal; Units: %; Status: F Test: MONO %; Value: 3.2; Range: 0.0-5.0; Units: %; Status: F Test: EOS %; Value: 0.4; Range: 0.0-3.0; Units: %; Status: F Test: BASO %; Value: 0.1; Range: 0.0-1.0; Units: %; Status: F Test: LARGE UNSTAINED CELL %; Value: 0.3; Range: 0.0-4.0; Units: %; Status: F Test: NEUTROPHILS #; Value: 12.2; Range: 1.8-7.7; Abnormal: Above high normal; Units: K/mm3; Status: F Test: LYMPH #; Value: 0.8; Range: 1.5-6.5; Abnormal: Below low normal; Units: K/mm3; Status: F Test: MONO #; Value: 0.4; Range: 0.0-0.8; Units: K/mm3; Status: F Test: EOS #; Value: 0.0; Range: 0.0-0.50; Units: K/mm3; Status: F Test: BASO #; Value: 0.0; Range: 0.0-0.2; Units: K/mm3; Status: F Test: LARGE UNSTAINED CELL #; Value: 0.1; Range: 0.0-0.4; Units: K/mm3; Status: F Lab Order: Lipase; [facility] 08/24/16 10:42 Test: LIPASE; Value: 81; Range: 73-393; Units: U/L; Status: F Lab Order: Liver Profile; [facility] 08/24/16 10:42 Test: AST/SGOT; Value: 18; Range: 15-37; Units: U/L; Status: F Test: ALT/SGPT; Value: 41; Range: 12-78; Units: U/L; Status: F Test: ALKALINE PHOSPHATASE; Value: 84; Range: 45-117; Units: U/L; Status: F Test: BILIRUBIN,TOTAL; Value: 0.6; Range: 0.2-1.0; Units: MG/DL; Status: F Test: BILIRUBIN,DIRECT; Value: 0.1; Range: 0.0-0.2; Units: MG/DL; Status: F Test: TOTAL PROTEIN; Value: 8.6; Range: 6.4-8.2; Abnormal: Above high normal; Units: GM/DL; Status: F Test: ALBUMIN; Value: 4.4; Range: 3.2-5.2; Units: GM/DL; Status: F Test: ALBUMIN/GLOBULIN RATIO; Value: 1.05; Range: 1.00-1.93; Status: F Radiology Order: CT ABD & PELVIS: IV Contrast Only Test: CT ABD & PELVIS: IV Contrast Only REASON FOR EXAMINATION: Abdomen Pain; Clinical: Acute abdominal pain.; ; Technique: Axial contrast enhanced images from the lung bases to the pubic; symphysis using 100 ml Isovue 370 intravenous contrast material with coronal and; sagittal re-formations.; ; Findings:; ; The appendix is fluid-filled and distended to approximately 17 mm with; appendicolith and trace periappendiceal stranding suggesting the possibility of; acute appendicitis (images 116 - 138). Remainder of the enteric system is; unremarkable and without obstruction or further acute inflammatory process.; ; Liver, spleen, pancreas, gallbladder, bilateral adrenal glands and kidneys are; normal. Pelvis demonstrates normal bladder and age appropriate prostate/seminal; vesicles. No pelvic fluid. No intraperitoneal or retroperitoneal adenopathy.; No ascites. No free air. Abdominal aorta and vasculature normal. Surrounding; musculoskeletal structures without focal osseous abnormality. Lung bases clear.; ; Impression:; Findings suggest acute appendicitis and clinical correlation is recommended. No; associated bowel obstruction, free air to suggest perforation, or drainable; collection/abscess.; ; ; Signed by; Prabhjot No MD 08/24/2016 12:38 P; Outcome: 13:17 Decision to Hospitalize by Provider. cc10 13:39 Patient left the ED. ja5 Signatures: Dispatcher [employer] EDMS Kalani Kate, RN RN dls Crys Plasencia, TEST FIXTURE ASSEMBLER TEST FIXTURE ASSEMBLER jam1 Cindi Peraza, Reg Reg gb Ruddy Oshea, Reg Reg lg Ginna Méndez RN RN jc4 Saira Enriquez, TEST FIXTURE ASSEMBLER TEST FIXTURE ASSEMBLER ct3 Celena SzymanskiRN RN dsf Carlos Camacho, PA-C PA-C cc10 Ezequiel,Soni,RN RN ja5 Chart Complete MTDD
--- NOTE | 2016-08-26 14:40 | EDDOCDS ---
Physician Documentation [facility] Name: Cory Jovel Age: 25 yrs Sex: Male : 1990 Arrival Date: 08/24/2016 Time: 10:04 Bed I7 / 29 Private MD: Piedad Hartmann Disposition: 08/24/16 13:17 Hospitalization ordered by Juan Alberto Estrada for Inpatient Admission. Preliminary diagnosis is Acute appendicitis. - Bed requested for Admit. - Status is Inpatient Admission. ja5 - Condition is Stable. - Problem is new. - Symptoms have improved. Historical: - Allergies: no known allergies; - Home Meds: 1. none - PMHx: none; - PSHx: septoplasty; - Social history: Smoking status: Patient/guardian denies using No barriers to communication noted, The patient speaks fluent Prydeinig. - : The pt / caregiver states he / she is not on anticoagulants. Home medication list is obtained from family members. - Exposure Risk Screening:: None identified. Vital Signs: 08/24 10:06 BP 154 / 74; Pulse 89; Resp 18; Temp 97.1(O); Pulse Ox 99% on R/A; Weight 117.93 kg / ct3 259.99 lbs (R); Height 6 ft. 3 in. (190.50 cm) (R); Pain 7/10; 12:39 Pain 6/10; ja5 12:41 BP 163 / 74; Pulse 70; Resp 20; Temp 98.2; Pulse Ox 100% ; Pain 6/10; jam1 12:44 Pain 6/10; dsf 13:29 BP 173 / 81; Pulse 70; Resp 20; Temp 96.4(T); Pulse Ox 99% on R/A; Pain 8/10; dsf 10:06 Body Mass Index 32.50 (117.93 kg, 190.50 cm) ct3 MDM: 11:30 Undress patient appropriately for examination ordered. cc10 11:30 IV Saline Lock ordered. cc10 11:30 Ondansetron 4 mg IVP once ordered. cc10 11:30 NS 0.9% 1000 ml IV at bolus once ordered. cc10 11:31 Basic Metabolic Profile Ordered. EDMS 11:31 CBC with Diff Ordered. EDMS 11:31 Lipase Ordered. EDMS 11:31 Liver Profile Ordered. EDMS 11:31 NOTHING BY MOUTH+DIET ordered. EDMS 11:47 morphine 4 mg IVP once ordered. cc10 11:47 CT ABD & PELVIS: IV Contrast Only Ordered. EDMS 12:16 Basic Metabolic Profile Reviewed. cc10 12:16 CBC with Diff Reviewed. cc10 12:16 Liver Profile Reviewed. cc10 12:16 Lipase Reviewed. cc10 12:19 Financial registration complete. lg 12:43 morphine 4 mg IVP once ordered. cc10 13:16 Piperacillin-Tazobactam 3.375 grams IVPB once over 30 mins; dilute in 50mL of NS or D5W cc10 ordered. 13:19 BED REQUEST+ADM ordered. EDMS 13:33 Admission Orders was scanned into [email or web address] and attached to record. [facility] 13:37 [facility] Payment Agreement was scanned into [email or web address] and attached to record. lg 15:34 T-Sheet-- Draft Copy was scanned into [email or web address] and attached to record. gb Administered Medications: 11:44 Drug: NS 0.9% 1000 ml [sodium chloride 0.9 % intravenous solution] Route: IV; Rate: ja5 bolus; Site: left antecubital; 11:45 Drug: Ondansetron 4 mg [ondansetron HCl 2 mg/mL intravenous solution (2 mL)] Route: ja5 IVP; Site: left antecubital; 11:54 Drug: morphine 4 mg [morphine 4 mg/mL intravenous cartridge (1 mL)] Route: IVP; Site: ja5 left antecubital; 12:39 Follow up: Pain 6/10 Adult ja5 12:44 Follow up: Pain 6/10 Adult; see charted VS dsf 12:47 Drug: morphine 4 mg [morphine 4 mg/mL intravenous cartridge (1 mL)] Route: IVP; Site: dsf right antecubital; 13:28 Drug: Piperacillin-Tazobactam 3.375 grams [piperacillin-tazobactam 3.375 gram ja5 intravenous solution] Route: IVPB; Infused Over: 30 mins; Site: left antecubital; Signatures: Dispatcher [employer] EDMS Kalani Kate RN RN dls Cindi Peraza, Reg Reg gb Ruddy Oshea, Reg Reg lg Ginna Méndez RN RN jc4 Celena Szymanski RN RN Carlos Persaud PA-C PAEleniC cc10 Soni NievesRN RN ja5 The chart was reviewed and I authenticate all verbal orders and agree with the evaluation and treatment provided.Attachments: 13:33 Admission Orders jc4 13:37 [facility] Payment Agreement lg 15:34 T-Sheet-- Draft Copy gb Chart Complete MTDD
== END 2016-08-25 12:15 | disposition home or self-care (01) ==
LOC: M ED 10:04 → M SDC 13:24 → M PED 16:05 → M SDC 08-25 12:15
PROVIDERS: ATTEND Surgery
DX: K35.89 Other acute appendicitis (principal); E66.9 Obesity, unspecified
CPT/HCPCS: 36415; 44970; 74177; 80048; 80076; 83690; 85025; 88304; 96376; 99284; J1885; J2250; J2405; J2543; J2710; J3010; Q9967

== ENCOUNTER → 2016-12-15 | Outpatient (CLI) | payer BC ==
[~2016-12-15] MED LIST changes: +NORCOTAB PO
[2016-12-15 09:47] LABS: FOLATE > 24.0 NG/ML; VITAMIN B12 LEVEL 571 PG/ML
[2016-12-15 09:49] LABS: ALBUMIN 4.3 GM/DL (3.2-5.2); ANION GAP 6 MEQ/L (8-16); BLOOD UREA NITROGEN 28 MG/DL (7-18); CALCIUM LEVEL 9.3 MG/DL (8.5-10.1); CARBON DIOXIDE LEVEL 29 MEQ/L (21-32); CHLORIDE LEVEL 104 MEQ/L (98-107); CREATININE FOR GFR 1.06 MG/DL (0.70-1.30); FREE T4 0.97 NG/DL (0.76-1.46); GLOMERULAR FILTRATION RATE > 60.0 (>60); GLUCOSE, FASTING 93 MG/DL (70-105); PHOSPHORUS LEVEL 4.4 MG/DL (2.5-4.9); POTASSIUM SERUM 4.7 MEQ/L (3.5-5.1); SODIUM LEVEL 139 MEQ/L (136-145)
[2016-12-17 00:07] LABS: Lyme Disease IgG/IgM Antibodie <0.91 ISR (0.00-0.90); Lyme Disease IgM Ab Quantitati <0.80 index (0.00-0.79)
== END ==
LOC: M LAB 08:41
PROVIDERS: ATTEND Orthopaedic Surgery
DX: M54.5 Low back pain (principal)

== ENCOUNTER → 2017-05-11 | Outpatient (RCR) | payer BC | LOC: M PT 05-05 08:24 | PROVIDERS: ATTEND Psychiatry & Neurology Neurology | DX: Z51.89 Encounter for other specified aftercare (principal); M54.9 Dorsalgia, unspecified | CPT/HCPCS: 97110; 97162; G0283 ==

== ENCOUNTER → 2017-06-10 | Outpatient (RCR) | payer BC | LOC: M PT 05-13 07:44 | PROVIDERS: ATTEND Psychiatry & Neurology Neurology | DX: M54.5 Low back pain (principal) | CPT/HCPCS: 97110; G0283 ==